=== PATIENT | female | born 1935 | race Caucasian/White ===

== ENCOUNTER 2022-02-07 15:32 | Emergency (ER) | payer OTHER, SELFPAY ==
[2022-02-07 15:42] VITALS: BP 142/61; PULSE 75; TEMP 36.8; O2SAT 99; BMI 24.6
[2022-02-07] MEDS: PANTOPRAZOLE SODIUM 40 MG INJ 80 MG IVP (16:25)
[2022-02-07 16:31] LABS: Basophils Percent Auto 0.8 % (0.0-3.0); Eosinophils Percent Auto 3.1 % (0.0-7.0); Hematocrit 38.4 % (33.0-51.0); Hemoglobin* 12.8 gm/dL (12.0-16.0); Mean Corpuscular HGB Conc 33 gm/dL (32-36); Mean Corpuscular Hemoglobin 30 pg (26-34); Mean Corpuscular Volume 91 fL (80-100); Neutrophils Percent Auto 38.1 % (42.0-72.0); Platelet Count* 186 K/uL (140-440); RDW Coefficient of Variation % 12.7 % (11.5-15.5); Red Blood Count 4.22 m/uL (4.00-5.20); White Blood Count* 2.57 K/uL (4.50-11.00)
[2022-02-07 16:32] LABS: Slide Review Reflex No
--- NOTE | 2022-02-07 16:59 | ED_ITS ---
HPI - General Adult General Chief complaint: GI Bleed Stated complaint: UPPER INTESTINAL BLEEDING Time Seen by Provider: 02/07/22 15:44 Source: patient Mode of arrival: ambulatory Limitations: no limitations History of Present Illness HPI narrative: 86-year-old female coming in today concerned about dark tarry stools that occurred during 2 separate episodes today. She denies bright red blood per rectum. She is not lightheaded or dizzy. She denies any chest pain or shortness of breath. This has never happened to her before. She denies daily iron supplementation, recent use of Pepto-Bismol, recent ingestion of beats. She denies any abdominal or rectal pain. She has not had a colonoscopy for many years. Denies nausea, vomiting, or weight loss. She does not take any blood thinners. Related Data Home Medications Medication Instructions Recorded Confirmed lisinopril 20 mg tablet mg 02/07/22 Allergies Allergy/AdvReac Type Severity Reaction Status Date / Time NSAIDS (Non-Steroidal Allergy Verified 02/07/22 15:42 Anti-Inflamma Review of Systems Status of ROS: Reports: 10 or more systems reviewed and unremarkable except as noted in History and below [facility] Medical History Hypertension Social History Smoking Status: Never smoker Do you use any of these nicotine containing products: None Second hand tobacco smoke exposure: No How often do you have a drink containing alcohol: monthly or less How often do you have six or more drinks on one occasion: Never AUDIT-C Alcohol total score: 1 Non-prescribed substance use: denies use Exam Narrative: Exam Narrative: Well-nourished well-developed patient in no acute distress. Alert and oriented. Answers questions appropriately. Mood and affect are appropriate. Thoughts are goal oriented and rational. No tangential or magical thinking noted. Patient speaks in full sentences without needing to catch their breath. Speech is not slurred or pressured. HEENT: Normocephalic atraumatic. Pupils are equally round reactive to light. Extraocular muscles are intact. Conjunctivae are moist without any icterus noted. Moist mucous membranes. Posterior pharynx is normal. Neck is soft without any lymphadenopathy or thyromegaly. No masses are appreciated. No pallor noted of the skin or conjunctiva. Cardiovascular: Heart is regular rate and rhythm S1 and S2 are present without any murmurs. Lungs: Clear to auscultation bilaterally no wheezes rhonchi or rales are appreciated. Patient takes deep breaths without any discomfort. Abdomen: Soft and nontender nondistended with normal bowel sounds. No guarding or rebound. No masses or organomegaly appreciated. Extremities: Bilateral lower extremities are without edema. Normal DP and PT pulses. Skin: Well perfused without any obvious rashes. Const: Vital Signs, click to edit/add: Vital Signs - 24 hr 02/07/22 15:42 Temperature 98.2 F Pulse Rate [Right Pulse Oximeter] 75 Blood Pressure [Ri ght Upper Arm] 142/61 H Pulse Oximetry 99 Oxygen Delivery Me thod Room Air Course Course Hospital Course: Stool guaiac testing was done and was positive. IV was started and patient received IV Protonix. CBC was unremarkable. Vital Signs Vital signs: Initial Vital Signs Temperature 98.2 F 02/07/22 15:42 Temperature Source Temporal Artery Scan 02/07/22 15:42 Pulse Rate 75 02/07/22 15:42 Blood Pressure 142/61 H 02/07/22 15:42 Blood Pressure Mean 88 02/07/22 15:42 Pulse Oximetry 99 02/07/22 15:42 Oxygen Delivery Method 02/07/22 15:42 Vital Signs Temperature 98.2 F 02/07/22 15:42 Pulse Rate 75 02/07/22 15:42 Blood Pressure 142/61 H 02/07/22 15:42 Pulse Oximetry 99 02/07/22 15:42 Oxygen Delivery Method 02/07/22 15:42 Temperature 98.2 F 02/07/22 15:42 Pulse Rate 75 02/07/22 15:42 Blood Pressure 142/61 H 02/07/22 15:42 Pulse Oximetry 99 02/07/22 15:42 Oxygen Delivery Method 02/07/22 15:42 Medical Decision Making [facility] Narrative Medical decision making narrative: 86-year-old female with GI bleed. Patient will be scheduled for outpatient upper and lower endoscopies. Return to ER for increased bleeding, or any systemic symptoms such as dizziness or she chest pain. Patient was agreeable had no other questions. Medical Records Medical records reviewed: Yes I reviewed the patient's medical records Lab Data Lab results reviewed: Yes I reviewed the patient's lab results Labs: Lab Results 02/07/22 Range/Units 16:23 WBC 2.57 L (4.50-11.00) K/uL RBC 4.22 (4.00-5.20) m/uL Hgb 12.8 (12.0-16.0) gm/dL Hct 38.4 (33.0-51.0) % MCV 91 (80-100) fL MCH 30 (26-34) pg MCHC 33 (32-36) gm/dL RDW Coeff of J Carlos 12.7 (11.5-15.5) % Plt Count 186 (140-440) K/uL Neut % (Auto) 38.1 L (42.0-72.0) % Lymph % (Auto) 42.0 (20-44) % Beau[place] % (Auto) 16.0 H (0.0-11.0) % Eos % (Auto) 3.1 (0.0-7.0) % Baso % (Auto) 0.8 (0.0-3.0) % Neut # (Auto) 1.00 L (1.7-7.0) K/uL Lymph # (Auto) 1.10 (0.90-2.90) K/uL [place] # (Auto) 0.40 (0.00-0.90) K/UL Eos # (Auto) 0.10 (0.00-0.50) K/uL Baso # (Auto) 0.00 (0.00-0.30) K/uL Abs Immat Gran (auto) 0.00 (0.00-0.30) K/uL Discharge Plan Discharge Clinical Impression: GI bleed Patient Disposition: Home, Self-Care Condition: Stable Additional Instructions: Return to the ER if you have bright red blood per rectum. Start daily omeprazole 20 mg daily until you have your endoscopies. This can be purchased [id number]. You will be scheduled for upper and lower endoscopies. Prescriptions: No Action lisinopril 20 mg tablet Label Comments: TAKE ONE TABLET BY MOUTH ONCE DAILY Follow Up/Referrals: El Milner MD [Primary Care Provider] - Stand Alone Forms: [employer] Info Instructions
[2022-02-07 17:16] VITALS: BP 117/54; PULSE 66; RESP 14
== END 2022-02-07 17:18 | disposition home or self-care (01) ==
PROVIDERS: Emergency Provider Family Medicine; PCP Family Medicine
DX: K92.2 Gastrointestinal hemorrhage, unspecified (principal)
CPT/HCPCS: 36415; 85025; 96374; 99283; 99284; C9113

== ENCOUNTER 2022-04-06 08:25 | Outpatient (CLI) | payer MEDICARE, SELFPAY | END 2022-04-06 08:26 | disposition home or self-care (01) | LOC: OP CLINIC 08:30 | PROVIDERS: PCP Family Medicine; Visit Provider Internal Medicine Gastroenterology | DX: K92.2 Gastrointestinal hemorrhage, unspecified (principal); K31.89 Other diseases of stomach and duodenum; K44.9 Diaphragmatic hernia without obstruction or gangrene | CPT/HCPCS: 43239; 88305; J2250; J3010 ==

== ENCOUNTER 2022-05-15 09:03 | Outpatient (RCR) | payer SELFPAY | END 2023-05-04 14:44 | disposition home or self-care (01) | LOC: MOW 09:03 | PROVIDERS: PCP Family Medicine; Visit Provider Family Medicine | DX: Z76.0 Encounter for issue of repeat prescription (principal) | CPT/HCPCS: S5170 ==

== ENCOUNTER 2022-09-22 12:43 | Outpatient (CLI) | payer MEDICARE, SELFPAY ==
--- NOTE | 2022-09-22 13:00 | CRLHL7_ITS ---
For Patients: As a result of the Century Cures Act, medical imaging exams and procedure reports are released immediately into your electronic medical record. You may view this report before your referring provider. If you have questions, please contact your health care provider. BILATERAL SCREENING MAMMOGRAM WITH COMPUTER-AIDED DETECTION AND TOMOSYNTHESIS TECHNIQUE: CC and MLO views were obtained. These mammographic images have been obtained using full-field digital technique. These mammographic images were interpreted with the benefit of computer-aided detection. Breast Tomosynthesis was used in this interpretation. COMPARISON FILM: 07/21/21, 07/11/20, 05/29/19. FINDINGS: There are scattered areas of fibroglandular density IMPRESSION: There is no radiographic evidence for malignancy. ASSESSMENT: BI-RADS Category 1: Negative RECOMMENDATION: Routine screening mammogram in 1 year. A lay language report of this examination will be provided to the patient. Everett Londono M.D. Diagnostic Radiologist [email or web address] Transcribed: 1:53 p.m. DW/Dictated by: Everett Londono MD @ 09/23/2022 1:04:00 PM (Electronically Signed)
== END 2022-09-22 12:44 | disposition home or self-care (01) ==
LOC: MAMMO 12:46
PROVIDERS: PCP Internal Medicine
DX: Z12.31 Encounter for screening mammogram for malignant neoplasm of breast (principal)
CPT/HCPCS: 77063; 77067

== ENCOUNTER 2023-12-16 13:21 | Outpatient (CLI) | payer MEDICARE, SELFPAY ==
--- NOTE | 2023-12-16 13:40 | CRLHL7_ITS ---
For Patients: As a result of the Century Cures Act, medical imaging exams and procedure reports are released immediately into your electronic medical record. You may view this report before your referring provider. If you have questions, please contact your health care provider. BILATERAL SCREENING MAMMOGRAM WITH COMPUTER-AIDED DETECTION AND TOMOSYNTHESIS TECHNIQUE: CC and MLO views were obtained. These mammographic images have been obtained using full-field digital technique. These mammographic images were interpreted with the benefit of computer-aided detection. Breast Tomosynthesis was used in this interpretation. COMPARISON FILM: 09/22/22, 07/21/21, 07/11/20. FINDINGS: There are scattered areas of fibroglandular density. IMPRESSION: There is no radiographic evidence for malignancy. ASSESSMENT: BI-RADS Category 1: Negative RECOMMENDATION: Routine screening mammogram in 1 year. A lay language report of this examination will be provided to the patient. Everett Londono M.D. Diagnostic Radiologist [email or web address] SP/Dictated by: Everett Londono MD @ 12/20/2023 11:38:00 AM (Electronically Signed)
== END 2023-12-16 13:22 | disposition home or self-care (01) ==
LOC: MAMMO 13:22
PROVIDERS: Visit Provider Family Medicine
DX: Z12.31 Encounter for screening mammogram for malignant neoplasm of breast (principal)
CPT/HCPCS: 77063; 77067

== ENCOUNTER 2023-12-23 15:31 | Emergency (ER) | payer MEDICARE, SELFPAY ==
[2023-12-23 15:40] VITALS: BP 169/83; PULSE 69; RESP 16; TEMP 36.3; O2SAT 98; BMI 24.2
--- NOTE | 2023-12-23 16:04 | ED.GENADULT ---
HPI - General Adult General Chief complaint: Unspecified Complaint, Adult Stated complaint: Took husbands meds accidently yesterday-feels bad Time Seen by Provider: 12/23/23 15:41 History of Present Illness HPI narrative: This 88-year-old female comes in with her and daughter as she realized that she took her 's medications yesterday. This was about 24 hours prior to arrival here. She has not taken any medications since then. She does bring a list of her 's medicines and what she took and we also have access to her prescribed medications. She arrives here with some elevation in her blood pressure but otherwise has normal vital signs and states that she is feeling back to normal. She did feel a little tired and lightheaded yesterday but her daughter states that her blood pressure was measured twice and both times a systolic value was in the 140s. Related Data Home Medications ?Medication ?Instructions ?Recorded ?Confirmed alendronate 70 mg tablet 70 mg PO 12/23/23 calcium carbonate (Tums) 200 mg PO QID PRN 12/23/23 12/23/23 cholecalciferol (vitamin D3) 25 25 mcg PO DAILY 12/23/23 12/23/23 mcg (1,000 unit) capsule cinnamon bark 500 mg capsule 500 mg PO DAILY 12/23/23 12/23/23 latanoprost 0.005 % eye drops 1 drp ophthalmic (eye) QPM 12/23/23 12/23/23 lisinopril 20 1 tab PO DAILY 12/23/23 12/23/23 mg-hydrochlorothiazide 12.5 mg tablet multivitamin (Daily Multi-Vitamin 1 tab PO DAILY 12/23/23 12/23/23 tablet) omega 2-cea-gbi-fish oil 1,000 mg 1 cap PO DAILY 12/23/23 12/23/23 (120 mg-180 mg) capsule (Fish Oil) resveratrol 250 mg capsule 250 mg PO DAILY 12/23/23 12/23/23 turmeric 400 mg capsule 400 mg PO DAILY 12/23/23 12/23/23 Allergies Allergy/AdvReac Type Severity Reaction Status Date / Time NSAIDS (Non-Steroidal Allergy Verified 12/23/23 15:44 Anti-Inflamma Review of Systems Status of ROS: Reports: 10 or more systems reviewed and unremarkable except as noted in History and below Narrative: Constitutional: No fevers, no weight gain or loss. Eyes: No discharge. No vision changes. HENT: No congestion, no sore throat, no ear pain. Cardiovascular: No chest pain, no palpitations. Respiratory: No shortness of breath, no wheezes, no cough. Gastrointestinal: No abdominal pain, no vomiting, no diarrhea. Genitourinary: No dysuria, no hematuria. Musculoskeletal: Normal range of motion. Skin: No rashes, no pruritis. Neurological: No dizziness, weakness, sensory change, speech change. Endo/Heme/Allergies: No bruising or bleeding. No polydipsia. Pysch: no suicidality, no anxiety, no insomnia. All other systems reviewed and are negative. [facility] Medical History Hypertension Social History Smoking Status: Never smoker Do you use any of these nicotine containing products: None Second hand tobacco smoke exposure: No How often do you have a drink containing alcohol: monthly or less How often do you have six or more drinks on one occasion: Never AUDIT-C Alcohol total score: 1 Non-prescribed substance use: denies use Exam Narrative: Exam Narrative: Constitutional: Well-developed, well-nourished, no acute distress. HEENT: Normocephalic, atraumatic. Neck: Normal range of motion. Nontender. Supple. Heart: Regular. No murmurs. Normal rate. Intact distal pulses. Lungs: Clear to auscultation. No chest discomfort. No wheezes, rhonchi, or rales. Abdomen: Normal bowel sounds. Nontender. No rebound tenderness. Genitalia: Deferred. Back: No midline tenderness. Normal range of motion. Extremities: Normal range of motion. No injury. Skin: Intact. No rash. Warm. No erythema or pallor. Neurologic: No altered sensation. No weakness. Alert and oriented. Psychiatric: No suicidality. No anxiety or depression. No insomnia. Nursing notes and vitals signs are reviewed. Const: Vital Signs, click to edit/add: Vital Signs - 24 hr 12/23/23 15:40 Temperature 97.4 F L Pulse Rate [Right Pulse Oximeter] 69 Respiratory Rate 16 Blood Pressure [Ri ght Upper Arm] 169/83 H Pulse Oximetry 98 Oxygen Delivery Me thod Room Air Course Vital Signs Vital signs: Initial Vital Signs Temperature 97.4 F L 12/23/23 15:40 Temperature Source Temporal Artery Scan 12/23/23 15:40 Pulse Rate 69 12/23/23 15:40 Pulse Rhythm Regular 12/23/23 15:40 Pulse Strength 3+ Normal 12/23/23 15:40 Respiratory Rate 16 12/23/23 15:40 Blood Pressure 169/83 H 12/23/23 15:40 Blood Pressure Mean 111 H 12/23/23 15:40 Blood Pressure Position Sitting 12/23/23 15:40 Pulse Oximetry 98 12/23/23 15:40 Oxygen Delivery Method Room Air 12/23/23 15:40 Vital Signs Temperature 97.4 F L 12/23/23 15:40 Pulse Rate 69 12/23/23 15:40 Respiratory Rate 16 12/23/23 15:40 Blood Pressure 169/83 H 12/23/23 15:40 Pulse Oximetry 98 12/23/23 15:40 Oxygen Delivery Method Room Air 12/23/23 15:40 Temperature 97.4 F L 12/23/23 15:40 Pulse Rate 69 12/23/23 15:40 Respiratory Rate 16 12/23/23 15:40 Blood Pressure 169/83 H 12/23/23 15:40 Pulse Oximetry 98 12/23/23 15:40 Oxygen Delivery Method Room Air 12/23/23 15:40 Medical Decision Making MDM Narrative Medical decision making narrative: This patient comes in for evaluation after realizing that she had taken her 's medications yesterday. Her 's medication list includes the following: Toprol XL 200 mg, lisinopril 20 mg, hydrochlorothiazide 25 mg, multivitamin, spironolactone 25 mg, primitive tone 50 mg, Protonix 40 mg, gabapentin 100 mg, BuSpar 10 mg, Lipitor 10 mg, and some vitamins. The patient took these medicines about 24 hours ago and arrives here with reassuring exam and vital signs and states that she is feeling normal. I did discuss the role of lab and imaging options but indicated reassurance with reviewing her regularly prescribed medicines and her 's medications. Enough time is elapsed where there are no indications for her lab or observation strategies. The patient is reassured with these comments and feels okay to return home. Discharge Plan Discharge Clinical Impression: Medication administered in error Patient Disposition: Home w/ Parent or Adult Condition: Stable Additional Instructions: Resume current medications tomorrow. Follow up with MD as needed. Return if worsening. Prescriptions: No Action latanoprost 0.005 % drops 1 drp ophthalmic (eye) QPM lisinopril-hydrochlorothiazide 20-12.5 mg tablet 1 tab PO DAILY alendronate 70 mg tablet 70 mg PO multivitamin [Daily Multi-Vitamin] Tablet 1 tab PO DAILY turmeric 400 mg capsule 400 mg PO DAILY resveratrol 250 mg capsule 250 mg PO DAILY calcium carbonate [Tums] 200 mg calcium (500 mg) tablet,chewable 200 mg PO QID PRN cholecalciferol (vitamin D3) 25 mcg (1,000 unit) capsule 25 mcg PO DAILY omega 6-zgf-tmu-fish oil [Fish Oil] 1,000 mg (120 mg-180 mg) capsule 1 cap PO DAILY cinnamon bark 500 mg capsule 500 mg PO DAILY Follow Up/Referrals: Provider,Not a Local [Primary Care Provider] - Stand Alone Forms: [employer] Info Instructions
== END 2023-12-23 16:22 | disposition home or self-care (01) ==
LOC: ED 16:15
PROVIDERS: Emergency Provider Emergency Medicine Emergency Medical Services; PCP Family Medicine
DX: T50.991A Poisoning by other drugs, medicaments and biological substances, accidental (unintentional), initial encounter (principal)
CPT/HCPCS: 99282; 99283; 99284